=== PATIENT | male | born 1990 | race Caucasian/White ===

== ENCOUNTER 2017-07-20 11:45 | Emergency (ER) | payer BC ==
--- NOTE | 2017-07-20 12:08 | ED ---
Male Urogenital HPI - General Chief complaint: Urogenital Stated complaint: Male Time Seen by Provider: 07/20/17 11:55 Source: patient, RN notes reviewed, old records reviewed Mode of arrival: ambulatory Limitations: no limitations - History of Present Illness Initial comments: Physical 27-year-old male presenting to the emergency department with 1 day of right testicular pain and swelling. Patient reports that he woke up this morning and felt a sharp pain in his testicle and the area around it is very swollen. Patient denies any recent dysuria or penile discharge. Patient states he's had no trauma. Denies any previous episodes of this similar pain. Patient states that he is unsure if he may have any STDs. Patient denies any other symptoms aside the testicular pain. He reports that he did wake up today and the pain was severe he did have episode of vomiting. He reports that he is feeling somewhat better at this time. Patient denies any recent fever or chills , abdominal pain, chest pain, shortness of breath, back pain. - Related Data Previous Rx's Medication Instructions Recorded Doxycycline [Vibramycin] 100 mg PO Q12HR 10 Days 07/20/17 Ibuprofen [Motrin] 600 mg PO Q8HR PRN #20 tab 07/20/17 Allergies Allergy/AdvReac Type Severity Reaction Status Date / Time No Known Allergies Allergy Verified 07/20/17 13:53 Review of Systems ROS Statement: Those systems with pertinent positive or pertinent negative responses have been documented in the HPI. ROS Other: All systems not noted in ROS Statement are negative. Past Medical History Past Medical History: No Reported History History of Any Multi-Drug Resistant Organisms: None Reported Past Surgical History: No Surgical Hx Reported Past Psychological History: No Psychological Hx Reported Smoking Status: Current some day smoker Past Alcohol Use History: Occasional Past Drug Use History: None Reported General Exam - General Exam Comments Initial Comments: Well-appearing 27-year-old male. No acute distress. Limitations: no limitations General appearance: alert, in no apparent distress Head exam: Present: atraumatic, normocephalic, normal inspection Eye exam: Present: normal appearance, PERRL, EOMI. Absent: scleral icterus, conjunctival injection, periorbital swelling ENT exam: Present: normal exam, mucous membranes moist Neck exam: Present: normal inspection. Absent: tenderness, meningismus, lymphadenopathy Respiratory exam: Present: normal lung sounds bilaterally. Absent: respiratory distress, wheezes, rales, rhonchi, stridor Cardiovascular Exam: Present: regular rate, normal rhythm, normal heart sounds. Absent: systolic murmur, diastolic murmur, rubs, gallop, clicks GI/Abdominal exam: Present: soft, normal bowel sounds. Absent: distended, tenderness, guarding, rebound, rigid exam: Present: testicular tenderness (Right-sided testicular tenderness and swelling.), circumcision. Absent: normal inspection, urethral discharge Extremities exam: Present: normal inspection, full ROM, normal capillary refill. Absent: tenderness, pedal edema, joint swelling, calf tenderness Back exam: Present: normal inspection Neurological exam: Present: alert, oriented X3, CN II-XII intact Psychiatric exam: Present: normal affect, normal mood Skin exam: Present: warm, dry, intact, normal color. Absent: rash Course Vital Signs 07/20/17 11:48 Temperature 99.5 F Pulse Rate 73 Respiratory 20 Rate Blood Pressure 107/63 O2 Sat by Pulse 98 Oximetry Medical Decision Making - Lab Data Lab Results 07/20/17 Range/Units 12:29 Urine Color Yellow Urine Appearance Clear (Clear) Urine pH 7.5 (5.0-8.0) Ur Specific [place] 1.027 (1.001-1.035) Urine Protein 1+ H (Negative) Urine Glucose (UA) Negative (Negative) Urine Ketones Negative (Negative) Urine Blood Negative (Negative) Urine Nitrite Negative (Negative) Urine Bilirubin Negative (Negative) Urine Urobilinogen 2.0 (<2.0) mg/dL Ur Leukocyte Esterase Negative (Negative) Urine RBC 5 (0-5) /hpf Urine WBC 1 (0-5) /hpf Urine Mucus Rare H (None) /hpf Disposition Clinical Impression: Orchitis of right testicle Disposition: HOME SELF-CARE Condition: Good Instructions: Orchitis (ED), Testicle Pain (ED) Additional Instructions: Patient advised to complete the antibiotic prescription. Follow-up with the urologist. Patient needs to complete scrotal support, and apply ice. Patient should take anti-inflammatory medications as prescribed. Return to the emergency department if any alarming signs or symptoms occur. Prescriptions: Doxycycline [Vibramycin] 100 mg PO Q12HR 10 Days Ibuprofen [Motrin] 600 mg PO Q8HR PRN #20 tab PRN Reason: Pain Referrals: Obdulia Flores MD [Primary Care Provider] - 1-2 days Milton Trotter MD [STAFF PHYSICIAN] - 1-2 days Time of Disposition: 14:29
[2017-07-20 12:48] LABS: Appearance,Urine Clear (Clear); Bilirubin,Urine Negative (Negative); Glucose,Urine (UA) Negative (Negative); Ketones,Urine Negative (Negative); Leukocyte Esterase,Urine Negative (Negative); Mucus,Urine Rare /hpf; Nitrite,Urine Negative (Negative); PH, Urine 7.5 (5.0-8.0); Particle Count 2908; Protein,Urine 1+ (Negative); RBC,Urine 5 /hpf (0-5); Specific Gravity,Urine 1.027 (1.001-1.035); UA Billing (MACRO vs. MICRO) MICRO; WBC,Urine 1 /hpf (0-5)
--- NOTE | 2017-07-20 14:24 | US ---
EXAMINATION TYPE: US scrotum with doppler. Grayscale and color Doppler Duplex imaging performed of lenny saul scrotum. DATE OF EXAM: 07/20/2017 COMPARISON: NONE CLINICAL HISTORY: Pain. rt > lt EXAM MEASUREMENTS: TESTICLES: Right Testicle: 5.3 x 2.1 x 3.9 cm Left Testicle: 4.4 x 2.4 x 3.9 cm EPIDIDYMIS HEAD: Right Epididymis: 1.1 cm Left Epididymis: 1.2 cm Doppler performed to assess for testicular vascularity; good bilateral color flow and waveforms are s een. Right testicle appears to have slightly increased flow in comparison to the left. There is no evidence of testicular torsion. Presence of hydroceles: Slightly on the right Presence of varicoceles: No, but boderline measurements bilaterally measuring 0.3 cm with valsalva o n the rt and lt IMPRESSION: 1. Mild increased flow on the right testicle compared to the left. Consider testicular orchitis withi n the differential
[2017-07-20] MEDS ORDERED: cefTRIAXone 250 MG VIAL IM STA (14:27)
[2017-07-20] MEDS ORDERED: AZITHROMYCIN 500 MG TAB PO STA (14:28)
[2017-07-20] MEDS ORDERED: NAPROXEN 250 MG TAB PO STA (14:29)
[2017-07-20] MEDS ORDERED: ONDANSETRON 4 MG ODT STARTER PACK 2 TAB BTL PO STA (14:45)
[2017-07-20 14:54] VITALS: BP 120/70; PULSE 70; RESP 16; TEMP 97.8
== END 2017-07-20 14:52 | disposition home or self-care (01) ==
LOC: EC 11:45
DX: N45.2 Orchitis (principal); F17.200 Nicotine dependence, unspecified, uncomplicated
CPT/HCPCS: 81001; 87491; 87591; 93975; 76870; 99284; 96372; J0696; S0119